=== PATIENT | female | born 1985 | race African-American/Black ===

== ENCOUNTER 2016-11-29 13:43 | Emergency (ER) | payer OTHER ==
[~2016-11-29] VITALS: Ht 170.2 cm; Wt 122.5 kg
[2016-11-29 14:09] VITALS: BP 132/75
[2016-11-29] MEDS ORDERED: ONDANSETRON 4 MG/2 ML VIAL IVP ONE (14:15)
[2016-11-29] MEDS ORDERED: NACL 0.9% 1,000 ML IV ONE ×2 (14:15→16:10)
[2016-11-29] MEDS ORDERED: FAMOTIDINE 20 MG/2 ML VIAL IVP ONE (14:15)
[2016-11-29] MEDS ORDERED: DIPHENOXYLATE /ATROPINE 2.5 MG TAB PO ONE (14:15)
[2016-11-29 14:48] LABS: BASOPHILS # (AUTO) 0.1 K/uL (0.00-0.22); BASOPHILS % (AUTO) 1.1 % (0.0-2.0); EOSINOPHILS # (AUTO) 0.1 K/uL (0-0.4); EOSINOPHILS % (AUTO) 1.4 % (0.0-4.0); HEMATOCRIT 34.4 % (36-48); HEMOGLOBIN 10.6 g/dL (12.0-16.0); LYMPHOCYTES # (AUTO) 1.9 K/uL (2.5-16.5); LYMPHOCYTES % (AUTO) 20.5 % (20.5-51.1); MEAN CORPUSCULAR HEMOGLOBIN 24 pg (27-31); MEAN CORPUSCULAR HGB CONC 31 g/dL (33-37); MEAN CORPUSCULAR VOLUME 78 fL (80-94); MONOCYTES # (AUTO) 0.6 K/uL (0.8-1.0); MONOCYTES % (AUTO) 6.6 % (1.7-9.3); NEUTROPHILS # (AUTO) 6.7 K/uL (1.8-7.7); NEUTROPHILS % (AUTO) 70.4 % (42.2-75.2); PLATELET COUNT (AUTO) 348 K/uL (140-450); RED BLOOD CELL COUNT(AUTO) 4.43 MIL/uL (4.20-5.40); RED CELL DISTRIBUTION WIDTH 16.3 % (11.6-13.7); WHITE BLOOD COUNT (AUTO) 9.4 K/uL (4.8-10.8)
[2016-11-29] MEDS ORDERED: METOCLOPRAMIDE 10 MG/2 ML INJ VIAL IVP ONE ×2 (15:05→16:10)
[2016-11-29 15:11] LABS: ANION GAP 15.6 (8-16); CARBON DIOXIDE 26.3 mmol/L (21-32); POTASSIUM 3.9 mmol/L (3.5-5.1)
[2016-11-29 15:18] LABS: ALBUMIN 3.9 g/dL (3.4-5.0); TOTAL BILIRUBIN 0.3 mg/dL (0.0-1.0); TOTAL PROTEIN, SERUM 8.1 g/dL (6.4-8.2)
[2016-11-29] MEDS ORDERED: DEXTROSE 50% 50 ML SYR IVP ONE (15:20)
[2016-11-29] MEDS ORDERED: fentaNYL 0.05 MG/ML VIAL IVP ONE (16:10)
[2016-11-29] MEDS ORDERED: METOCLOPRAMIDE 10 MG/2 ML INJ VIAL IM ONE (16:25)
[2016-11-29] MEDS ORDERED: fentaNYL 0.05 MG/ML VIAL IM ONE (16:25)
[2016-11-29] MEDS ORDERED: ONDANSETRON 4 MG ODT PO ONE (17:35)
[2016-11-29] MEDS ORDERED: diphenhydrAMINE 50 MG/ML VIAL IM ONE (17:35)
[2016-11-29 17:36] LABS: APPEARANCE,URINE HAZY (CLEAR); BLOOD, URINE 1+ (NEGATIVE); COLOR,URINE YELLOW (YELLOW); LEUKOCYTE ESTERASE ,URINE TRACE (NEGATIVE); NITRITE, URINE NEGATIVE (NEGATIVE); PH,URINE 6.5 (5.0-9.0); PROTEIN,URINE TRACE (NEGATIVE); UGLUCOSE 3+ (NEGATIVE); UROBILINOGEN,URINE 0.2 EU/dL (0.2 - 1)
[2016-11-29 17:38] LABS: BILIRUBIN,URINE NEGATIVE (NEGATIVE)
[2016-11-29 17:41] LABS: WBC,URINE 20-40 /HPF (0-5)
[2016-11-29 17:42] LABS: BACTERIA,URINE 2+ /HPF (None Seen); MUCUS,URINE 3+ /LPF (None Seen); SQUAMOUS EPITHELIAL CELL,UR 40-60 /LPF (0-3 (FEW))
[2016-11-29 18:42] VITALS: BP 131/72
== END 2016-11-29 18:41 | disposition home or self-care (01) ==
LOC: MED 13:43
DX: R11.10 Vomiting, unspecified (principal); R19.7 Diarrhea, unspecified
CPT/HCPCS: 36415; 80053; 81001; 81025; 82948; 83690; 85025; 87086; 93005; 96361; 96372; 96374; 96375; 99285; J1200; J2405; J2765; J3010; J3490; J7030; S0119

== ENCOUNTER 2017-09-18 09:58 | Emergency (ER) | payer OTHER ==
[~2017-09-18] VITALS: Ht 180.3 cm; Wt 90.7 kg
--- NOTE | 2017-09-18 09:59 | NUR ---
PT BIBA BLS TO BED 4
[2017-09-18 10:02] VITALS: BP 155/90
--- NOTE | 2017-09-18 10:05 | NUR ---
DR INGRAM EVALUATING AT BEDSIDE
--- NOTE | 2017-09-18 10:10 | NUR ---
32f biba with c/o 8/10 intermittent burning bl upper abd pain with n/v x 3 days. Patient reports of approx 5-10 emesis per day. Patient denies any diarrhea. Patient also reports of feeling anxious and weak. Patient denies any fevers or urinary complaints. Patient is aox4. GCS=15. Skin warm/dry/color appriopriate for ethnicity. Mucous membranes moist. VSS. Er md katz by bedside examining patient. Will continue to monitor.
[2017-09-18] MEDS ORDERED: NACL 0.9% 1,000 ML IV SCH (10:11)
[2017-09-18] MEDS ORDERED: PANTOPRAZOLE 40 MG INJ VIAL IVP ONE (10:15)
[2017-09-18] MEDS ORDERED: METOCLOPRAMIDE 10 MG/2 ML INJ VIAL IVP ONE (10:15)
[2017-09-18 10:51] LABS: BASOPHILS % (AUTO) 0.3 % (0.0-2.0); EOSINOPHILS % (AUTO) 0.1 % (0.0-4.0); HEMATOCRIT 31.3 % (36-48); HEMOGLOBIN 9.6 g/dL (12.0-16.0); LYMPHOCYTES # (AUTO) 0.9 K/uL (2.5-16.5); LYMPHOCYTES % (AUTO) 11.7 % (20.5-51.1); MEAN CORPUSCULAR HEMOGLOBIN 22 pg (27-31); MEAN CORPUSCULAR HGB CONC 31 g/dL (33-37); MONOCYTES # (AUTO) 0.2 K/uL (0.8-1.0); MONOCYTES % (AUTO) 3.2 % (1.7-9.3); NEUTROPHILS # (AUTO) 6.2 K/uL (1.8-7.7); NEUTROPHILS % (AUTO) 84.7 % (42.2-75.2); PLATELET COUNT (AUTO) 267 K/uL (140-450); RED BLOOD CELL COUNT(AUTO) 4.47 MIL/uL (4.20-5.40); RED CELL DISTRIBUTION WIDTH 18.9 % (11.6-13.7); WHITE BLOOD COUNT (AUTO) 7.3 K/uL (4.8-10.8)
[2017-09-18 11:05] LABS: ALBUMIN 4.4 g/dL (3.4-5.0); ANION GAP 18.7 (8-16); CARBON DIOXIDE 20.7 mmol/L (21-32); POTASSIUM 3.4 mmol/L (3.5-5.1); TOTAL BILIRUBIN 0.3 mg/dL (0.0-1.0)
--- NOTE | 2017-09-18 11:21 | NUR ---
PT UNABLE TO PROVIDE URINE SAMPLE. ER MD INGRAM MADE AWARE. NO NEW ORDERS.
--- NOTE | 2017-09-18 12:04 | NUR ---
PATIENT REMAINS LAYING WITH EYES CLOSED IN [facility]. VSS. WILL CONTINUE TO MONITOR.
--- NOTE | 2017-09-18 12:47 | NUR ---
Note summerone in EDM - 09/18/17 at 1401 by ORACIO Patient discharged with v/s stable. Written and verbal after care instructions given and explained. Patient alert, oriented and verbalized understanding of instructions. Ambulatory with steady gait. All questions addressed prior to discharge. ID band removed. Patient advised to follow up with PMD. Rx of Pepcid and Reglan given. Patient educated on indication of medication including possible reaction and side effects. Opportunity to ask questions provided and answered.
[2017-09-18] MEDS ORDERED: METOCLOPRAMIDE 10 MG/2 ML INJ VIAL IM ONE (13:10)
[2017-09-18] MEDS ORDERED: METOCLOPRAMIDE 10 MG/2 ML INJ VIAL ONE (13:21)
--- NOTE | 2017-09-18 13:42 | NUR ---
PATIENT RESTING WITH EYES CLOSED. RR ARE EVEN AND UNLABORED.
[2017-09-18 13:55] VITALS: BP 118/72
--- NOTE | 2017-09-18 13:55 | NUR ---
Patient discharged with v/s stable. Written and verbal after care instructions given and explained. Patient alert, oriented and verbalized understanding of instructions. Ambulatory with steady gait. All questions addressed prior to discharge. ID band removed. Patient advised to follow up with PMD. Rx of Pepcid and Reglan given. Patient educated on indication of medication including possible reaction and side effects. Opportunity to ask questions provided and answered.
== END 2017-09-18 12:47 | disposition home or self-care (01) ==
LOC: MED 09:58
DX: K29.70 Gastritis, unspecified, without bleeding (principal)
CPT/HCPCS: 36415; 80053; 83690; 85025; 96361; 96372; 96374; 96375; 99285; C9113; J2765; J7030